=== PATIENT | female | born 1960 | race Caucasian/White ===

== ENCOUNTER 2017-07-17 18:18 | Emergency (ER) | payer MEDICARE, OTHER ==
[~2017-07-17] VITALS: Ht 175.3 cm; Wt 118.4 kg
[2017-07-17] MEDS ORDERED: LACTATED RINGERS 1,000 ML IV ONE ×2 (19:13→19:40)
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
[2017-07-17] MEDS ORDERED: ACETAMINOPHEN 500 MG TAB (TYLENOL) PO PRN (19:15)
[2017-07-17] MEDS ORDERED: ONDANSETRON 4 MG/2 ML (SDV) Z0FRAN IVP PRN (19:15)
[2017-07-17] MEDS ORDERED: KETOROLAC 30 MG/ML VIAL IVP ONE (19:15)
[2017-07-17 19:24] LABS: BASOPHILS % (AUTO) 0 % (0-10); EOSINOPHILS # (AUTO) 0.5 10^3/uL (0.0-0.3); EOSINOPHILS % (AUTO) 5 % (0-10); HEMATOCRIT 40 % (35-52); HEMOGLOBIN 13.9 G/DL (11.5-16.0); LYMPHOCYTES # (AUTO) 1.8 X 10^3 (1.0-4.0); LYMPHOCYTES % (AUTO) 20 % (12-44); MEAN CORPUSCULAR HEMOGLOBIN 30 PG (25-34); MEAN CORPUSCULAR HGB CONC 35 G/DL (32-36); MEAN CORPUSCULAR VOLUME 86 FL (80-99); MEAN PLATELET VOLUME 11.9 FL (7.4-10.4); MONOCYTES # (AUTO) 0.6 X 10^3 (0.0-1.0); MONOCYTES % (AUTO) 7 % (0-12); NEUTROPHILS # (AUTO) 6.3 X 10^3 (1.8-7.8); NEUTROPHILS % (AUTO) 68 % (42-75); PLATELET COUNT 381 10^3/uL (130-400); RED BLOOD COUNT 4.66 10^6/uL (4.35-5.85); RED CELL DISTRIBUTION WIDTH 12.8 % (10.0-14.5); WHITE BLOOD COUNT 9.2 10^3/uL (4.3-11.0)
[2017-07-17 19:33] LABS: PROTHROMBIN TIME PATIENT 12.7 SEC (12.2-14.7)
[2017-07-17 19:41] LABS: ALANINE AMINOTRANSFERASE 33 U/L (0-55); ALBUMIN 4.1 GM/DL (3.2-4.5); ALKALINE PHOSPHATASE 120 U/L (40-136); BILIRUBIN,TOTAL 0.2 MG/DL (0.1-1.0); BUN/CREATININE RATIO 13; CALCIUM 8.7 MG/DL (8.5-10.1); CARBON DIOXIDE 20 MMOL/L (21-32); CHLORIDE 110 MMOL/L (98-107); CREATININE SERUM 0.84 MG/DL (0.60-1.30); GFR ESTIMATED > 60; GLUCOSE 345 MG/DL (70-105); POTASSIUM 3.9 MMOL/L (3.6-5.0); SODIUM 143 MMOL/L (135-145); TOTAL PROTEIN 6.5 GM/DL (6.4-8.2)
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
[2017-07-17 20:30] LABS: BILIRUBIN,URINE NEGATIVE (NEGATIVE); CLARITY,URINE CLEAR; COLOR,URINE YELLOW; GLUCOSE, URINE (UA) 4+ (NEGATIVE); KETONES,URINE 1+ (NEGATIVE); LEUKOCYTE ESTERASE ,URINE 1+ (NEGATIVE); NITRITE,URINE NEGATIVE (NEGATIVE); PH,URINE 5 (5-9); PROTEIN,URINE 1+ (NEGATIVE); UROBILINOGEN,URINE NORMAL (NORMAL); WBC,URINE 0-2 /HPF
[2017-07-17] MEDS ORDERED: HYDROcodone/APAP 5 MG/325 MG (LORTAB) TAB PO ONE (20:30)
[2017-07-17 20:38] LABS: AMPHETAMINE SCREEN, URINE POSITIVE (NEGATIVE); BARBITURATE SCREEN URINE NEGATIVE (NEGATIVE); BENZODIAZEPINES SCREEN URINE NEGATIVE (NEGATIVE); CANNABINOID SCREEN, URINE POSITIVE (NEGATIVE); COCAINE SCREEN URINE NEGATIVE (NEGATIVE); METHADONE STAT NEGATIVE (NEGATIVE); METHAMPHETAMINE SCREEN URINE S NEGATIVE (NEGATIVE); OPIATE SCREEN URINE NEGATIVE (NEGATIVE); OXYCODONE STAT NEGATIVE (NEGATIVE); PROPOXYPHENE STAT NEGATIVE (NEGATIVE); TRICYCLIC ANTIDEPRESSANTS SCRE POSITIVE (NEGATIVE)
--- NOTE | 2017-07-17 21:08 | Diagnostic Imaging Report ---
INDICATION: Fell backward. Back pain. COMPARISON: No previous studies are available for comparison. EXAMINATION: Two views of the chest were obtained. FINDINGS: PA and lateral chest shows the lungs are well-aerated and clear. No pneumothorax or pleural effusion. Heart is not enlarged. There is no pulmonary edema. No hilar adenopathy. Lateral view shows good alignment of the thoracic spine with no compression fractures. There is question of an old healed rib fracture along the anterior right fifth and sixth ribs. IMPRESSION: 1. No acute findings demonstrated. 2. Question of old healed rib fractures along the anterior right fifth and sixth rib. Dictated by: Dictated on workstation # [id number]
--- NOTE | 2017-07-17 21:09 | Diagnostic Imaging Report ---
INDICATION: Fell backwards. Upper and lower back pain. EXAMINATION: Two views of the thoracic spine. FINDINGS: Good alignment of the vertebral bodies. Body heights are well-maintained without evidence of compression fractures. Mild diffuse disc disease noted with minimal hypertrophic lipping of the endplates, anteriorly, noted throughout. The pedicles appear intact. No paraspinal masses. IMPRESSION: Mild diffuse degenerative thoracic disc disease without acute abnormality. Dictated by: Dictated on workstation # [id number]
--- NOTE | 2017-07-17 21:09 | Diagnostic Imaging Report ---
INDICATION: Fell backward. Back pain. FINDINGS: 3 views of the lumbar spine show good alignment. Body heights well-maintained without compression fractures. Facets show good alignment with moderate sclerotic changes L5-S1. No evidence of pars defect. There is mild hypertrophic lipping of the endplates anteriorly from L2-L5. Aorta is densely calcified without aneurysm. IMPRESSION: Mild degenerative disc and facet changes with no acute abnormalities. Dictated by: Dictated on workstation # [id number]
[2017-07-17] MEDS ORDERED: TRAM50TA2 PO (21:34)
[2017-07-17] MEDS ORDERED: ORPHENADRINE 60 MG/2 ML (NORFLEX) AMP IM ONE (21:45)
[2017-07-17] MEDS ORDERED: ORPHENADRINE 60 MG/2 ML (NORFLEX) AMP IV ONE (21:45)
[2017-07-17 21:54] VITALS: BP 158/80
== END 2017-07-17 21:54 | disposition home or self-care (01) ==
LOC: ER 18:21
DX: M25.511 Pain in right shoulder (principal); M25.512 Pain in left shoulder; R50.9 Fever, unspecified; M54.9 Dorsalgia, unspecified; R40.2142 Coma scale, eyes open, spontaneous, at arrival to emergency department; R40.2252 Coma scale, best verbal response, oriented, at arrival to emergency department; R40.2362 Coma scale, best motor response, obeys commands, at arrival to emergency department; E11.9 Type 2 diabetes mellitus without complications; F17.200 Nicotine dependence, unspecified, uncomplicated; Z88.2 Allergy status to sulfonamides; Z88.7 Allergy status to serum and vaccine; Z88.8 Allergy status to other drugs, medicaments and biological substances; W18.30XA Fall on same level, unspecified, initial encounter
CPT/HCPCS: 36415; 70450; 71046; 72070; 72100; 72125; 80053; 80306; 80320; 81000; 83605; 85025; 85610; 85730; 87040; 87430

== ENCOUNTER 2018-10-23 11:35 | Emergency (ER) | payer MEDICAID, MEDICARE, OTHER ==
[~2018-10-23] VITALS: Ht 175.2 cm; Wt 102.0 kg
[~2018-10-23 11:35] MED LIST: TRAM50TA2 PO
--- NOTE | 2018-10-23 12:34 | ED GI ---
General Chief Complaint: Abdominal/GI Problems Stated Complaint: CONSTIPATION Nursing Triage Note: PT AMB TO RM 9 WITH COMPLAINT CONSTIPATION FOR 12 DAYS. STATES HAS TRIED VARIOUS OTC REMEDIES WITH NO SUCCESS. STATES LAST USED FLEETS SUPPOSITORY LAST NIGHT. Sepsis Screen: No Definite Risk Source of Information: Patient Exam Limitations: No Limitations History of Present Illness Date Seen by Provider: Oct 23, 2018 Time Seen by Provider: 11:42 Initial Comments 58-year-old female who presents to the emergency room for intermittent constipation for the past 12 days. She reports that she has tried Dulcolax, MiraLAX, Colace, and glycerin suppositories with minimal relief and only having small bowel movements. She reports mild abdominal pain with this. She denies any nausea or vomiting. Location: Generalized Abdomen Associated Symptoms: No Nausea/Vomiting Allergies and Home Medications Allergies Coded Allergies: Sulfa (Sulfonamide Antibiotics) (Verified Allergy, Unknown, 07/17/17) influenza virus vaccine tv splt 2012- (4 yr,up) (Verified Allergy, Unknown, 07/17/17) prochlorperazine (Verified Allergy, Unknown, 07/17/17) Home Medications Tramadol HCl 50 Mg Tablet, 50 MG PO Q6H PRN for PAIN Prescribed by: MALISSA HARRINGTON on 07/17/17 6127 Patient Home Medication List Home Medication List Reviewed: Yes Review of Systems Review of Systems Constitutional: see HPI; No chills, No fever Gastrointestinal: See HPI, Constipated All Other Systems Reviewed Negative Unless Noted: Yes Past Xxedrgm-[id number]-Nxoktg Hx Past Med/Social Hx: Reviewed Nursing Past Med/Soc Hx Patient Social History Alcohol Use: Denies Use Recreational Drug Use: No Type Used: Cigarettes 2nd Hand Smoke Exposure: Yes Recent Foreign Travel: No Contact w/Someone Who Travel: No Recent Infectious Disease Expo: No Recent Hopitalizations: No Physical Abuse: No Sexual Abuse: No Mistreated: No Fear: No Immunizations Up To Date Tetanus Booster (TDap): Unknown PED Vaccines UTD: Yes Seasonal Allergies Seasonal Allergies: No Past Medical History Surgeries: Yes Hysterectomy Respiratory: No Hypertension Neurological: No Genitourinary: No Gastrointestinal: No Musculoskeletal: No Endocrine: Yes Diabetes, Non-Insulin dep HEENT: No Cancer: No Psychosocial: No Integumentary: No Blood Disorders: No Family Medical History Reviewed Nursing Family Hx Physical Exam Vital Signs Vital Signs - First Documented 10/23/18 11:41 Temp 36.3 Pulse 97 Resp 16 B/P (MAP) 172/82 Pulse Ox 95 O2 Delivery Room Air Capillary Refill : Less Than 3 Seconds Height/Weight/BMI Height: 5'9.00" Weight: 261lbs. oz. [id number]; 33.00 BMI Method:Stated General Appearance: WD/WN, no apparent distress Respiratory: chest non-tender, lungs clear, normal breath sounds, no respiratory distress, no accessory muscle use Cardiovascular: normal peripheral pulses, regular rate, rhythm, no edema, no gallop, no JVD, no murmur Gastrointestinal: normal bowel sounds, non tender, soft, no organomegaly, no pulsatile mass Rectal: normal exam, normal rectal tone (negative for impaction), other (exam was assisted by Krysta FRIAS.) Extremities: normal capillary refill Neurologic/Psychiatric: alert, normal mood/affect, oriented x 3 Skin: normal color, warm/dry Progress/Results/Core Measures Results/Orders My Orders Orders - DONATO ORO Abdomen/Kub 1view (10/23/18 11:42) Na Phos/Na Biphos Enema (Fleet Enema [place] (10/23/18 13:15) Medications Given in ED Current Medications Medications Dose Ordered Sig/Cris Route Start Time Stop Time Status Last Admin Dose Admin Sodium Biphosphate/ Sodium Phosphate [address] 10/23/18 13:15 10/23/18 13:16 DC 10/23/18 13:19 1 EA Vital Signs/I&O 10/23/18 10/23/18 11:41 14:53 Temp 36.3 36.3 Pulse 97 97 Resp 16 16 B/P (MAP) 172/82 155/80 (112) Pulse Ox 95 95 O2 Delivery Room Air Room Air Blood Pressure Mean: 112 Progress Progress Note : Time: 14:14 Progress Note I have seen and evaluated the patient. She was given a Fleet enema which resulted in a large bowel movement. She reports feeling much better at this time. Agrees with plan of care and plans for discharge. Return precautions were given. Diagnostic Imaging Diagonstic Imaging: Xray Plain Films/CT/US/NM/MRI: abdomen Comments NAME: DELFINA JULIEN MED REC#: [id number] PT STATUS: REG ER : 1960 PHYSICIAN: DONATO ORO ADMIT DATE: 10/23/18/ER Draft Date of Exam:10/23/18 ABDOMEN/KUB 1VIEW PATIENT HISTORY: Constipation for 12 days. TECHNIQUE: Supine frontal views of the abdomen. COMPARISON: None. FINDINGS: There is moderate to marked stool in the colon. A small amount of stool is seen at the rectum. No dilated loops of small bowel are seen. There is no large collection of free air. There appears to be transitional anatomy at the lumbosacral junction on the left. Surgical clips are seen in the pelvis bilaterally. IMPRESSION: [id number] stool in the colon. No small bowel obstruction or free air. Dictated on workstation # [id number] Dict: 10/23/18 1232 Trans: 10/23/18 1234 [facility] [place] [id number] Interpreted by: SUSAN SHARP MD Electronically signed by: Reviewed: Reviewed by Me Departure Impression Primary Impression: Constipation Qualified Codes: K59.00 - Constipation, unspecified Disposition: HOME, SELF-CARE Condition: Stable/Unchanged Departure-Patient Inst. Decision time for Depature: 14:17 Referrals: NO,LOCAL PHYSICIAN (PCP/Family) Primary Care Physician Patient Instructions: Constipation, Adult (DC) Add. Discharge Instructions: Continue to use 1 capful of MiraLAX twice a day until you've for which her bowels are clear. Follow-up with your primary care provider within 1 week for recheck. Return back to the emergency room for worsening symptoms or concerns as needed. All discharge instructions reviewed with patient and/or family. Voiced understanding. DONATO ORO Oct 23, 2018 12:34
[2018-10-23] MEDS ORDERED: FLEET ENEMA ADULT 1 EA BTL PR ONE (13:15)
[2018-10-23 14:53] VITALS: BP 155/80
== END 2018-10-23 14:53 | disposition home or self-care (01) ==
LOC: EDUNIT# 11:35 → ER 11:36
DX: K59.00 Constipation, unspecified (principal); I10 Essential (primary) hypertension; E11.9 Type 2 diabetes mellitus without complications; Z88.2 Allergy status to sulfonamides; Z88.7 Allergy status to serum and vaccine; Z88.8 Allergy status to other drugs, medicaments and biological substances; Z77.22 Contact with and (suspected) exposure to environmental tobacco smoke (acute) (chronic); Z90.710 Acquired absence of both cervix and uterus
CPT/HCPCS: 74018